=== PATIENT | male | born 1945 | race Caucasian/White ===

== ENCOUNTER 2016-11-01 08:22 | Outpatient (CLI) | payer MEDICARE, OTHER | END 2016-11-01 08:23 | disposition home or self-care (01) | DX: E11.621 Type 2 diabetes mellitus with foot ulcer (principal); E03.9 Hypothyroidism, unspecified; I10 Essential (primary) hypertension; E78.5 Hyperlipidemia, unspecified ==

== ENCOUNTER 2017-09-12 08:49 | Outpatient (CLI) | payer MEDICARE, OTHER ==
[2017-09-12 18:03] LABS: ALBUMIN 3.8 g/dL (3.2-5.5); ALBUMIN/GLOBULIN RATIO 0.9 (1.0-2.2); ALKALINE PHOSPHATASE 65 IU/L (42-121); ALT ALANINE AMINOTRANSFERASE 26 IU/L (10-60); AST ASPARTATE AMINOTRANSFERASE 26 IU/L (10-42); BILIRUBIN,TOTAL 0.7 mg/dL (0.2-1.0); BUN - BLOOD UREA NITROGEN 30 mg/dL (6-20); CALCIUM 8.9 mg/dL (8.5-10.3); CARBON DIOXIDE - CO2 25 mmol/L (21-32); CHLORIDE 103 mmol/L (101-111); CHOL/HDL RATIO 3.3 (<5.0); CHOLESTEROL 154 mg/dL; CREATININE 1.4 mg/dL (0.6-1.2); GFR - MDRD 50 (>89); GLUCOSE 132 mg/dL (70-100); HDL CHOLESTEROL 47 mg/dL; LDL CHOLESTEROL,CALCULATED 87 mg/dL; LDL/HDL RATIO 1.9 (<3.6); SODIUM 133 mmol/L (135-145); TOTAL PROTEIN 7.9 g/dL (6.7-8.2); VLDL CHOLESTEROL 20 mg/dL
[2017-09-12 18:09] LABS: HB2 TOTAL 15.1 g/dL; HEMOGLOBIN A1C 0.65 g/dL; HEMOGLOBIN A1C % 6.1 % (4.6-6.2)
== END 2017-09-12 08:50 | disposition home or self-care (01) ==
LOC: LAB.F 08:49
PROVIDERS: ATTEND Family Medicine
DX: I10 Essential (primary) hypertension (principal); E11.9 Type 2 diabetes mellitus without complications; E78.5 Hyperlipidemia, unspecified; Z12.5 Encounter for screening for malignant neoplasm of prostate; E03.9 Hypothyroidism, unspecified
CPT/HCPCS: 36415; 80053; 80061; 83036; 84443; G0103; 83721; 84153

== ENCOUNTER 2018-05-15 08:44 | Outpatient (CLI) | payer MEDICARE, OTHER ==
[2018-05-15 10:55] LABS: BUN - BLOOD UREA NITROGEN 27 mg/dL (6-20); CALCIUM 9.1 mg/dL (8.5-10.3); CARBON DIOXIDE - CO2 25 mmol/L (21-32); CHLORIDE 104 mmol/L (101-111); CHOL/HDL RATIO 2.5 (<5.0); CHOLESTEROL 169 mg/dL; CREATININE 1.3 mg/dL (0.6-1.2); GFR - MDRD 54 (>89); GLUCOSE 131 mg/dL (70-100); HDL CHOLESTEROL 67 mg/dL; LDL CHOLESTEROL,CALCULATED 85 mg/dL; LDL/HDL RATIO 1.3 (<3.6); SODIUM 137 mmol/L (135-145); VLDL CHOLESTEROL 17 mg/dL
[2018-05-15 11:06] LABS: HB2 TOTAL 14.7 g/dL; HEMOGLOBIN A1C 0.61 g/dL; HEMOGLOBIN A1C % 5.9 % (4.6-6.2)
== END 2018-05-15 08:45 | disposition home or self-care (01) ==
LOC: LAB.F 08:44
PROVIDERS: ATTEND Internal Medicine
DX: E11.9 Type 2 diabetes mellitus without complications (principal); E78.5 Hyperlipidemia, unspecified
CPT/HCPCS: 36415; 80048; 80061; 82043; 83036; 83721; 84443

== ENCOUNTER 2018-08-24 08:42 | Outpatient (CLI) | payer MEDICARE, OTHER | END 2018-08-24 08:43 | disposition home or self-care (01) | LOC: LAB.F 08:42 | PROVIDERS: ATTEND Internal Medicine | DX: E03.9 Hypothyroidism, unspecified (principal) | CPT/HCPCS: 36415; 84443 ==

== ENCOUNTER 2019-04-27 08:18 | Outpatient (CLI) | payer MEDICARE, OTHER ==
[2019-04-27 10:22] LABS: ALBUMIN/GLOBULIN RATIO 0.9 (1.0-2.2); ALKALINE PHOSPHATASE 74 IU/L (42-121); ALT ALANINE AMINOTRANSFERASE 26 IU/L (10-60); AST ASPARTATE AMINOTRANSFERASE 24 IU/L (10-42); BILIRUBIN,TOTAL 0.6 mg/dL (0.2-1.0); BUN - BLOOD UREA NITROGEN 24 mg/dL (6-20); CALCIUM 9.1 mg/dL (8.5-10.3); CARBON DIOXIDE - CO2 25 mmol/L (21-32); CHLORIDE 103 mmol/L (101-111); CHOL/HDL RATIO 3.5 (<5.0); CHOLESTEROL 216 mg/dL; CREATININE 1.1 mg/dL (0.6-1.2); GFR - MDRD 66 (>89); GLUCOSE 125 mg/dL (70-100); HDL CHOLESTEROL 61 mg/dL; LDL CHOLESTEROL,CALCULATED 132 mg/dL; LDL/HDL RATIO 2.2 (<3.6); SODIUM 138 mmol/L (135-145); TOTAL PROTEIN 8.3 g/dL (6.7-8.2); VLDL CHOLESTEROL 23 mg/dL
[2019-04-27 10:28] LABS: CREATININE,URINE 52.3 mg/dL; HB2 TOTAL 14.9 g/dL; HEMOGLOBIN A1C 0.64 g/dL; HEMOGLOBIN A1C % 6.1 % (4.6-6.2); MICROALBUM/CREATININE RATIO,UR 76.5 ug/mg (<30.0)
== END 2019-04-27 08:19 | disposition home or self-care (01) ==
LOC: LAB.S 08:18
PROVIDERS: ATTEND Internal Medicine
DX: E78.5 Hyperlipidemia, unspecified (principal); E11.9 Type 2 diabetes mellitus without complications; E03.9 Hypothyroidism, unspecified
CPT/HCPCS: 36415; 80053; 80061; 82043; 82570; 83036; 83721; 84443

== ENCOUNTER 2019-05-11 12:46 | Outpatient (CLI) | payer MEDICARE, OTHER ==
--- NOTE | 2019-05-11 17:08 | Ultrasound Report ---
Reason: NECK MASS Procedure Date: 05/11/2019 Accession Number: [id number] / [id number] Procedure: US - Head or Neck Soft Tissue CPT Code: FULL RESULT: EXAM: NECK ULTRASOUND EXAM DATE: 05/11/2019 12:58 PM. CLINICAL HISTORY: Palpable left NECK MASS. COMPARISON: THYROID SCAN A 07/12/2007 2:02 PM THYROID 06/12/2007 8:06 AM. TECHNIQUE: Real-time sonographic imaging was performed by the multi purpose machine operator utilizing color-flow. Multiple traffic representative static images were saved for review. FINDINGS: In the right anterior triangle no cystic or solid mass or abnormal fluid collection is seen. No lipoma is identified. The clinically palpable mass corresponds to the known enlarged left lobe of the thyroid. Detailed imaging of the thyroid not performed. IMPRESSION: The clinically palpable mass corresponds to the known enlarged left lobe of the thyroid. No lipoma is seen. RAD[facility]
== END 2019-05-11 12:47 | disposition home or self-care (01) ==
LOC: DI 12:46
PROVIDERS: ATTEND Internal Medicine
DX: E04.9 Nontoxic goiter, unspecified (principal)
CPT/HCPCS: 76536

== ENCOUNTER 2019-05-18 17:24 | Outpatient (CLI) | payer MEDICARE, OTHER ==
--- NOTE | 2019-05-20 23:57 | Ultrasound Report ---
Reason: GOITER Procedure Date: 05/18/2019 Accession Number: [id number] / [id number] Procedure: US - Head or Neck Soft Tissue CPT Code: Final Report FULL RESULT: EXAM: THYROID ULTRASOUND EXAM DATE: 05/18/2019 05:00 PM. CLINICAL HISTORY: GOITER. COMPARISON: HEAD OR NECK SOFT TISSUE 05/11/2019 12:58 PM 05/23/2015 11:36 AM 10/19/2013 9:11 AM. TECHNIQUE: Real time sonographic imaging of the thyroid was performed by the consumer insight analyst. Multiple rental sales representative static images were saved for review. FINDINGS: THYROID GLAND: Right Lobe: 9.4 x 3.7 x 4.2 cm, volume 76 cc. Heterogeneous background echogenicity. Right Lobe Nodules: 1.7 x 1.3 x 1.5 mixed cystic and solid hyperechoic nodule,TIRADS2, not suspicious, although new compared to the prior exam. Left Lobe: 0.5 x 2.7 x 2.9 cm, volume 35 cc. Heterogeneous background echogenicity Left Lobe Nodules: In the upper pole there is a 3.2 x 1.7 x 2.5 cm hyperechoic solid nodule. May be new compared to the prior study, given characteristics only mildly suspicious, TIRADS3. Isthmus: 1.5 cm AP. Isthmic Nodules: A heterogeneous solid slightly hypoechoic nodule measuring 2.0 x 1.8 x 2.3 cm. Appears new compared to the prior exam. Mild internal vascularity, no echogenic foci.TIRADS4. LYMPH NODES: No adenopathy demonstrated in the central or lateral compartment. OTHER: None. IMPRESSION: Enlarged heterogeneous thyroid is again seen. Compared to the prior exam, a left lobe nodule is mildly suspicious measuring up to 3.2 cm, and meets criteria for FNA. In the isthmus there is a 2 cm hypoechoic solid nodule that is moderately suspicious and also meets criteria for FNA. Management recommendations are based on 2015 [place] [employer] Management Guidelines for Adult Patients with Thyroid Nodules and Differentiated Thyroid Cancer. RADIA
== END 2019-05-18 17:25 | disposition home or self-care (01) ==
LOC: DI 17:24
PROVIDERS: ATTEND Internal Medicine
DX: E04.2 Nontoxic multinodular goiter (principal)
CPT/HCPCS: 76536

== ENCOUNTER 2019-06-08 10:17 | Outpatient (CLI) | payer MEDICARE, OTHER ==
[2019-06-08] MEDS ORDERED: BUFFERED LIDOCAINE 10 ML SYRINGE ONE (10:30)
[2019-06-08] MEDS ORDERED: BUFFERED LIDOCAINE 10 ML SYRINGE IU ONE (12:04)
--- NOTE | 2019-06-08 12:32 | Ultrasound Report ---
Reason: THYROID NODULE Procedure Date: 06/08/2019 Accession Number: [id number] / [id number] Procedure: US - FNA Bx w/US Gnd les CPT Code: 63400 Final Report FULL RESULT: EXAM: THYROID FINE NEEDLE ASPIRATION EXAM DATE: 06/08/2019 11:50 AM. CLINICAL HISTORY: Thyroid nodule. COMPARISON: None. TECHNIQUE: The risks, benefits, and alternatives of the procedure were discussed with the patient. All questions were answered. Written and verbal consent were obtained. A site was marked over the left thyroid in question under live sonographic evaluation, then subsequently prepped and draped in a sterile manner. Local anesthesia was performed with 1% lidocaine. Total of 4 22 gauge fine-needle aspirates/passes were performed through the left lobe thyroid nodule in question, then passed to the leather cartridge belt maker for preparation. Estimated blood loss was 0 mL. Sonographic images demonstrate needle placement within left lobe thyroid nodule in question. FINDINGS IMPRESSION: Fine needle aspiration of solid left thyroid nodule. [facility]
== END 2019-06-08 10:18 | disposition home or self-care (01) ==
LOC: DI 10:17
PROVIDERS: ATTEND Internal Medicine
DX: E04.1 Nontoxic single thyroid nodule (principal)
CPT/HCPCS: 10005

== ENCOUNTER 2019-07-16 09:39 | Outpatient (CLI) | payer MEDICARE, OTHER | END 2019-07-16 09:40 | disposition home or self-care (01) | LOC: LAB.S 09:39 | PROVIDERS: ATTEND Internal Medicine | DX: E04.9 Nontoxic goiter, unspecified (principal) | CPT/HCPCS: 36415; 84443 ==

== ENCOUNTER 2023-01-17 08:50 | Outpatient (CLI) | payer MEDICARE, OTHER ==
[2023-01-17 14:54] LABS: ALBUMIN 3.4 g/dL (3.2-5.5); CALCIUM 9.1 mg/dL (8.5-10.3); CREATININE 2.8 mg/dL (0.6-1.2); PHOSPHORUS 4.7 mg/dL (2.5-4.6); POTASSIUM 4.8 mmol/L (3.5-5.0)
[2023-01-17 15:10] LABS: BASOPHILS # (AUTO) 0.1 10^3/uL (0.0-0.1); BASOPHILS % (AUTO) 0.8 %; EOSINOPHILS # (AUTO) 0.9 10^3/uL (0.0-0.7); EOSINOPHILS % (AUTO) 10.8 %; HCT - HEMATOCRIT 36.7 % (42.0-52.0); HGB - HEMOGLOBIN 11.6 g/dL (14.0-18.0); LYMPHOCYTES # (AUTO) 2.9 10^3/uL (1.5-3.5); LYMPHOCYTES % (AUTO) 36.3 %; MEAN CORPUSCULAR HEMOGLOBIN 30.4 pg (27.0-31.0); MEAN CORPUSCULAR HGB CONC 31.6 g/dL (32.0-36.0); MEAN CORPUSCULAR VOLUME 96.1 fL (80.0-94.0); MEAN PLATELET VOLUME 10.6 fL (7.4-11.4); MONOCYTES # (AUTO) 0.8 10^3/uL (0.0-1.0); MONOCYTES % (AUTO) 9.5 %; NEUTROPHILS # (AUTO) 3.3 10^3/uL (1.5-6.6); NEUTROPHILS % (AUTO) 42.3 %; PLT - PLATELET COUNT 237 10^3/uL (130-450); RED BLOOD COUNT 3.82 10^6/uL (4.70-6.10); RED CELL DISTRIBUTION WIDTH 14.3 % (12.0-15.0); WHITE BLOOD COUNT 7.9 x10^3/uL (4.8-10.8)
[2023-01-17 22:01] LABS: ESTIMATED AVERAGE GLUCOSE 131 mg/dL (70-100); HEMOGLOBIN A1c% 6.2 % (4.27-6.07)
== END 2023-01-17 08:51 | disposition home or self-care (01) ==
LOC: LAB.S 08:50
PROVIDERS: ATTEND Internal Medicine Nephrology
DX: E11.22 Type 2 diabetes mellitus with diabetic chronic kidney disease (principal); N18.32 Chronic kidney disease, stage 3b
CPT/HCPCS: 36415; 80069; 82570; 83036; 83970; 84156; 85025; 85027